=== PATIENT | female | born 1995 | race Caucasian/White ===

== ENCOUNTER 2024-01-29 01:38 | Inpatient (IN) | payer BC ==
[~2024-01-29] VITALS: Ht 182.9 cm; Wt 85.9 kg
[2024-01-29] VITALS (17 sets, daily range): BP systolic 109–145; BP diastolic 56–82; PULSE 63–94; TEMP 98.2–98.5
[2024-01-29] MEDS ORDERED: LR 1,000 ML IV ONE (02:10)
[2024-01-29] MEDS ORDERED: LR & Oxytocin 500 ML IV SCH (02:15)
[2024-01-29] MEDS ORDERED: LR 1,000 ML IV SCH (02:15)
[2024-01-29 02:27] LABS: HEMATOCRIT 38.3 % (37.0-47.0); HEMOGLOBIN 12.7 g/dl (12.5-16.0); MEAN CELL VOLUME 95 fl (80.0-100.0); MEAN CORPUSCULAR HEMOGLOBIN 32 pg (27-31); MEAN CORPUSCULAR HGB CONC 33 g/dl (33.0-37.0); MEAN PLATELET VOLUME 11.1 fl (7.4-10.4); PLATELET COUNT 220 K/mm3 (130-400); RED BLOOD COUNT 4.03 M/mm3 (4.10-5.30); REDCELL DISTRIBUTION WIDTH-CV 12.6 % (11.5-14.5)
[2024-01-29] MEDS ORDERED: ROPivacaine PF 0.2% 200 ML IV ONE (02:30)
[2024-01-29 02:45] LABS: BAND 1 % (0-10); LYMPHOCYTE 14 % (20.0-51.0); NEUTROPHILS 83 % (42.0-75.2); PLATELET ESTIMATE NORMAL (NORMAL)
[2024-01-29] MEDS ORDERED: Naloxone 0.4 MG/ML VIAL IV PRN ×2 (03:15→06:15)
[2024-01-29] MEDS ORDERED: Ondansetron 4 MG/2 ML VIAL IV PRN (03:15)
[2024-01-29] MEDS ORDERED: ePHEDrine 50 MG/10 ML VIAL IV PRN (03:15)
[2024-01-29] MEDS ORDERED: diphenhydrAMINE 50 MG/ML 1 ML VIAL IV PRN (03:15)
[2024-01-29] MEDS ORDERED: diphenhydrAMINE 25 MG CAP PO PRN (03:15)
--- NOTE | 2024-01-29 04:50 | NUR ---
CARDE[facility] CATH REMOVED IWTH 275 CC CLEAR YELLOW URINE.
--- NOTE | 2024-01-29 05:00 | NUR ---
0445 SVE PT COMPLETE. HAD PT DO SOME PRACTICE PUSHES, SHE PUSHES VERY WELL AND BABY IS MOVING DOWN. 0450 DR ROBERT NOTIFIED AND HE CAN START COMING THIS WAY. WE WILL START PUSHING. 0500. WHILE PUSHING FHR DECEL NOTED TO 90, MINIMAL VARIBILITY FOR 5 MINS. THEN FHR HAD ACCEL UP TO 150, AND DECEL DOWN TO 90'S AGAIN. I HAD PT STOP PUSHING. TURNED TO LEFT SIDE, O2 ON @ 10L VIA MASK ON . 0510 DR ROBERT HERE IN ROOM TO EVALUATE. PT RESUMED PUSHING WITH HIM AT BEDSIDE. 0515 DR ROBERT AT DESK PT CONTINUED TO PUSH. 0522 FHR DECEL TO 60'S. HAD PT STOP PUSHING INFORMED DR ROBERT. HE CAME IN TO EVALUATE AGAIN. WE HAD PT REST AND LET BABY RECOVERED FOR 8 MINS. THEN RESUMED PUSHING. O2 REMAINS ON PT VIA MASK. 0538. DR ROBERT AND NURSERY TEAM CALLED IN FOR DELIVERY. 0544 VAG DELIVERY MALE . BABY PLACED ON MOMS ABD, DRIED AND STIMULATED. CORD WAS CLAMPED AND THEN CUT BY FOB. 0547 PLACENTA DELIVERED. PITOCIN STARTED AT 333 V[address] ROBERT STARTED REPAIRS. THEN HAD TO MANUALLY REMOVED TISSUE PIECES. 0605 CYTOTEC [address] ROBERT.
--- NOTE | 2024-01-29 05:44 | NUR ---
VAG DELIVERY MALE . BABY PLACED ON MOMS ABD. DRIED AND STIMULATED. CORD CLAMPED AFTER ONE MINUTE BY FOB. PLACENTA DELIVERED AT 0547, PITOCIN STARTED AT 333ML VIA PUMP PER PROTOCOL. DR ROBERT HAD TO MANUALLY REMOVE A FEW PIECES OF TISSUE. CYTOTEC 600 MCG GIVEN RECTAL BY DR ROBERT. QBL 400
[2024-01-29] MEDS ORDERED: oxyCODONE 5 MG TAB PO PRN (06:15)
[2024-01-29] MEDS ORDERED: Phenylephrine/Mineral Oil/Petrolatum 57 GM TUBE RC PRN (06:15)
[2024-01-29] MEDS ORDERED: Measles/Mumps/Rubella Virus Vaccine Live w Diluent 0.5 ML VIAL SQ SCH (06:15)
[2024-01-29] MEDS ORDERED: Witch Hazel 50% Pads Bulk TUB TP PRN (06:15)
[2024-01-29] MEDS ORDERED: Ibuprofen 600 MG TAB PO SCH (06:15)
[2024-01-29] MEDS ORDERED: Mag/Al Hydrox/Simeth Susp 30 ML CUP PO PRN (06:15)
[2024-01-29] MEDS ORDERED: Acetaminophen 500 MG TAB PO SCH (06:15)
[2024-01-29] MEDS ORDERED: Magnes Hydrox (MOM) 80 MG/ML 30 ML CUP PO PRN (06:15)
[2024-01-29] MEDS ORDERED: Loratadine 10 MG TAB PO PRN (06:15)
[2024-01-29] MEDS ORDERED: Sennosides/Docusate 8.6-50 MG TAB PO SCH (08:00)
--- NOTE | 2024-01-29 08:32 | NUR ---
RECOVERY VITAL SIGNS FOR Cameron PETTIT RN DOCUMENTED BY THIS RN ON FLOW SHEET. THIS RN TOOK REPORT AT 0630 AND ASSUMED CARE OF PATIENT AT THAT TIME.
--- NOTE | 2024-01-29 09:45 | NUR ---
EPIDURAL CATH REMOVED. PATIENT UP TO BR WITH ASSIST OF RN. MOVES WELL. EMPTIES BLADDER ON OWN. PERICARE INSTRUCTIONS REVIEWED. PATIENT AMBULATES TO ROOM 216.
--- NOTE | 2024-01-29 15:11 | NUR ---
UP TO BATHROOM FOR 3RD VOID CHECK, 500CC OF CLEAR YELLOW URINE, ZAIRE CARE, ICE PACK AND TUCKS TO SWOLLEN LABIA, PT TOLERATES WELL, RET TO BED, INT DC'D AND DRESSING APPLIED, NO BLEEDING, PT UP IN BED TO EAT PIZZA, DENIES NEED FOR PAIN MEDICINE.
--- NOTE | 2024-01-29 18:30 | NUR ---
Report recieved. Resting in bed at this time. POC reviewed and whiteboard updated.
[2024-01-29] MEDS ORDERED: miSOPROStol 200 MCG TAB PO ONE (19:05)
[2024-01-29] MEDS ORDERED: traZODone 50 MG TAB PO PRN (21:00)
[2024-01-30 07:09] VITALS: BP 136/71; PULSE 66; TEMP 98.3
[2024-01-30] MEDS ORDERED: IBU600 MG PO (09:06)
== END 2024-01-30 14:25 | disposition home or self-care (01) | DRG 807 ==
LOC: LDRO 01:38 → LDR 02:12 → OB 02:12
PROVIDERS: Obstetrics & Gynecology; ADMIT Student in an Organized Health Care Education/Training Program
PROC: 10E0XZZ Delivery of Products of Conception, External Approach (ICD-10-PCS; principal; 2024-01-29)
PROC: 0KQM0ZZ Repair Perineum Muscle, Open Approach (ICD-10-PCS; 2024-01-29)
DX: O99.52 Diseases of the respiratory system complicating childbirth (principal); Z37.0 Single live birth; Z3A.39 39 weeks gestation of pregnancy; J45.909 Unspecified asthma, uncomplicated; O75.89 Other specified complications of labor and delivery; O70.1 Second degree perineal laceration during delivery; O76 Abnormality in fetal heart rate and rhythm complicating labor and delivery
CPT/HCPCS: J2795; J7120

== ENCOUNTER 2024-03-11 21:21 | Emergency (ER) | payer BC ==
[~2024-03-11] VITALS: Ht 182.9 cm; Wt 72.7 kg
[~2024-03-11 21:21] MED LIST: IBU600 MG PO
[2024-03-11 21:35] VITALS: TEMP 98.2
[2024-03-11 23:40] VITALS: BP 124/68; PULSE 52
== END 2024-03-11 23:40 | disposition home or self-care (01) ==
LOC: COL.ER 21:21
DX: H10.13 Acute atopic conjunctivitis, bilateral (principal)